=== PATIENT | female | born 1995 | race Caucasian/White ===

== ENCOUNTER 2017-04-21 11:17 | Emergency (ER) | payer SELFPAY ==
[~2017-04-21] VITALS: Ht 172.7 cm; Wt 66.7 kg
[2017-04-21 12:28] LABS: HEMATOCRIT 33.9 % (34.6-47.8); HEMOGLOBIN 11.3 g/dL (11.7-16.4); WHITE BLOOD COUNT 7.3 x10^3/uL (3.4-10)
[2017-04-21 12:41] LABS: ASPARTATE AMINO TRANSFERASE 12 U/L (15-37); BLOOD UREA NITROGEN 9 mg/dL (7-18)
[2017-04-21 14:01] VITALS: BP 101/54
== END 2017-04-21 14:03 | disposition home or self-care (01) ==
LOC: ED 14:00
DX: O26.893 Other specified pregnancy related conditions, third trimester (principal); O99.323 Drug use complicating pregnancy, third trimester; O99.333 Smoking (tobacco) complicating pregnancy, third trimester; Z3A.28 28 weeks gestation of pregnancy
CPT/HCPCS: 36415; 76805; 80053; 81001; 85025; 87086; 99285